=== PATIENT | male | born 1980 | race Caucasian/White ===

== ENCOUNTER 2021-09-13 13:46 | Emergency (ER) | payer OTHER ==
[~2021-09-13] VITALS: Ht 182.9 cm; Wt 117.9 kg
[2021-09-13 14:29] VITALS: BP 143/90
[2021-09-13 14:38] LABS: Urine Bacteria NONE SEEN /hpf (None Seen); Urine Blood Negative /uL (Negative); Urine Specific Gravity 1.012 (1.001-1.035); Urine WBC <1 /hpf (0 - 3)
[2021-09-13 14:58] LABS: Basophils # (auto) 0.1 10 ^3/uL (0-0.2); Basophils % (auto) 0.4 % (0.0-2.0); Eosinophils # (auto) 0.5 10 ^3/uL (0-0.8); Eosinophils % (auto) 3.4 % (0.0-7.0); Hematocrit 50.3 % (41.0-53.0); Hemoglobin 16.5 g/dL (13.5-17.5); Lymphocytes # (auto) 2.4 10 ^3/uL (0.4-5.4); Lymphocytes % (auto) 15.1 % (10.0-50.0); Mean Corpuscular Hgb Conc. 32.9 g/dL (32.0-36.0); Mean Corpuscular Volume 88.2 fL (80.0-100.0); Monocytes # (auto) 1.5 10 ^3/uL (0-1.3); Monocytes % (auto) 9.5 % (0.0-12.0); Neutrophils # (auto) 11.4 10 ^3/uL (1.6-8.6); Neutrophils % (auto) 71.6 % (37.0-80.0); Red Blood Cells 5.71 10^6/uL (4.5-5.90); Red Cell Distribution Width 13.6 % (11.8-14.3); White Blood Cell 15.9 10^3/uL (4.4-10.8)
[2021-09-13 15:06] LABS: Albumin 3.6 g/dL (3.4-5.0); Calcium 8.8 mg/dL (8.5-10.1); Potassium 4.2 mmol/L (3.5-5.1)
[2021-09-13 15:13] LABS: BUN/Creatinine Ratio 6.3; Bilirubin, Total 0.7 mg/dL (0.2-1.0); Total Protein 7.6 g/dL (6.4-8.2)
[2021-09-13] MEDS ORDERED: CIPR500T4 PO ×2 (17:53→18:59)
[2021-09-13] MEDS ORDERED: METR500T PO ×2 (17:53→18:59)
== END 2021-09-13 17:53 | disposition home or self-care (01) ==
LOC: ER 13:46
DX: K57.92 Diverticulitis of intestine, part unspecified, without perforation or abscess without bleeding (principal)
CPT/HCPCS: 36415; 74176; 80053; 81001; 83605; 83690; 85025

== ENCOUNTER 2023-02-20 20:07 | Emergency (ER) | payer OTHER ==
[~2023-02-20] VITALS: Ht 182.9 cm; Wt 131.0 kg
[~2023-02-20 20:07] MED LIST: CIPR500T4 PO; METR500T PO
[2023-02-20 22:11] LABS: Rapid Strep A Screen-Throat Positive
[2023-02-20 22:12] LABS: COVID19 ANTIGEN SOFIA FIA NEGATIVE (NEGATIVE); Rapid Influenza A Negative (Negative); Rapid Influenza B Negative (Negative)
[2023-02-20] MEDS ORDERED: IBUP-1456 PO (22:28)
[2023-02-20] MEDS ORDERED: AMOX875T4 PO (22:28)
[2023-02-20] MEDS ORDERED: PRED20TA2 PO (22:28)
[2023-02-20] MEDS ORDERED: methylPREDNISolone SOD SUCC 125 MG/2 ML VL IM ONE (22:30)
[2023-02-20] MEDS ORDERED: cefTRIAXone SOD 1,000 MG VL IM ONE (22:30)
[2023-02-20 22:44] VITALS: BP 127/88; PULSE 105; RESP 18; TEMP 98.2; O2SAT 95
== END 2023-02-20 23:16 | disposition home or self-care (01) ==
LOC: ER 20:07
DX: J02.0 Streptococcal pharyngitis (principal); J45.909 Unspecified asthma, uncomplicated; Z79.1 Long term (current) use of non-steroidal anti-inflammatories (NSAID); Z79.2 Long term (current) use of antibiotics; Z79.899 Other long term (current) drug therapy; Z20.822 Contact with and (suspected) exposure to COVID-19
CPT/HCPCS: 36415; 87426; 87804; 87880; 96372; 99284; J0696; J2930